=== PATIENT | female | born 1980 | race Caucasian/White ===

== ENCOUNTER 2016-07-14 16:52 | Emergency (ER) | payer BC, MEDICAID, OTHER ==
[2016-07-14 17:15] VITALS: BP 115/96
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
[2016-07-14 18:09] LABS: CHLORIDE,CL 103 mmol/L (101-111); SODIUM,NA 137 mmol/L (135-145)
== END 2016-07-14 18:33 | disposition home or self-care (01) ==
LOC: DL.ED 16:52
DX: Z77.21 Contact with and (suspected) exposure to potentially hazardous body fluids (principal); Z57.8 Occupational exposure to other risk factors; F17.210 Nicotine dependence, cigarettes, uncomplicated; Z88.2 Allergy status to sulfonamides; Z98.890 Other specified postprocedural states; Z90.49 Acquired absence of other specified parts of digestive tract; Z98.51 Tubal ligation status
CPT/HCPCS: 36415; 80053; 80074; 85025; 87389; 99283

== ENCOUNTER 2017-05-13 07:15 | Emergency (ER) | payer BC ==
[2017-05-13 07:54] VITALS: BP 126/98
--- NOTE | 2017-05-13 08:00 | EDM.PDOC ---
ED HPI GENERAL MEDICAL PROBLEM - General Chief Complaint: Respiratory Problem Stated Complaint: ? FLU Time Seen by Provider: 05/13/17 07:45 Source of Information: Reports: Patient History Limitations: Reports: No Limitations - History of Present Illness INITIAL COMMENTS - FREE TEXT/NARRATIVE: patient comes emergency Department today with complaints of fever or chills body aches dry hacking cough headache and a sore throat. She wonders if she does not have influenza. She did receive her influenza vaccine this year. Her symptoms of body aches and general malaise fatigue dry hacking cough and sore throat is been going on for the past 3 days. She has taken some Tylenol ibuprofen as well as TheraFlu with some improvement of the fever but she still feels quite ill. She denies any chest pain or production of cough. She denies any abdominal pain nausea or vomiting. She denies any hematuria dysuria or urinary frequency. She denies any earache. She denies any neck pain. Generalized Pain Score (Numeric/FACES): 6 - Related Data Allergies Allergy/AdvReac Type Severity Reaction Status Date / Time Sulfa (Sulfonamide Allergy Hives Verified 05/13/17 07:47 Antibiotics) Home Meds: Home Meds . 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 ED EXAM, GENERAL - Physical Exam Exam: See Below Free Text/Narrative:: dry hacking cough noted. Exam Limited By: No Limitations General Appearance: Alert, WD/WN, No Apparent Distress Eye Exam: Bilateral Eye: Normal Inspection Ears: Normal External Exam, Normal Canal, Normal TMs Ear Exam: Bilateral Ear: Auricle Normal, Canal Normal, TM normal Nose: Normal Inspection, Normal Mucosa Throat/Mouth: Normal Inspection, Normal Lips, Normal Teeth Head: Atraumatic, Normocephalic Neck: Normal Inspection, Non-Tender, Full Range of Motion, Lymphadenopathy (L), Lymphadenopathy (R) Respiratory/Chest: No Respiratory Distress, Lungs Clear, Normal Breath Sounds, No Accessory Muscle Use, Chest Non-Tender Cardiovascular: Normal Peripheral Pulses, Regular Rate, Rhythm Peripheral Pulses: 2+: Radial (L), Radial (R) GI/Abdominal: Normal Bowel Sounds, Soft, Non-Tender, No Organomegaly, No Distention, No Abnormal Bruit (Female) Exam: Deferred Rectal (Female) Exam: Deferred Back Exam: Normal Inspection, Full Range of Motion. No: CVA Tenderness (L), CVA Tenderness (R) Extremities: Normal Inspection, Normal Range of Motion, Non-Tender, Normal Capillary Refill Neurological: Alert, Oriented, CN II-XII Intact, Normal Reflexes, No Motor/ Sensory Deficits Psychiatric: Normal Affect, Normal Mood Skin Exam: Intact, Normal Color, No Rash, Cool, Diaphoretic Course - Vital Signs Last Recorded V/S: Last Vital Signs Temp 36.6 C 05/13/17 07:48 Pulse 96 05/13/17 07:48 Resp 16 05/13/17 07:48 BP 126/98 H 05/13/17 07:48 Pulse Ox 100 05/13/17 07:48 - Orders/Labs/Meds Orders: Active Orders 24 hr Category Date Time Status Chest 2V [CR] Urgent Exams 05/13/17 07:59 Taken CULTURE STREP A CONFIRMATION [RM] Stat Lab 05/13/17 07:56 Results STREP SCRN A RAPID W CULT CONF [RM] Stat Lab 05/13/17 07:56 Results Labs: Microbiology 05/13/17 07:56 Throat Group A Streptococcus Rapid Screen - Final NEGATIVE STREP A SCREEN - Radiology Interpretation Free Text/Narrative:: chest x-ray reviewed extemporaneously by myself. No effusion consolidation in filtrate hemopneumothorax with a normal cardiac silhouette reviewed extemporaneously by myself. Radiological review to follow. Negative chest xray per radiology report. - Re-Assessments/Exams Free Text/Narrative Re-Assessment/Exam: 05/13/17 07:59 we are currently out of the influenza testing kits. Strep screen and chest x- ray. 05/13/17 08:46 negative strep screen chest x-ray is negative as well. This is most likely influenza which we will treat her for with Tamiflu. Prescription for Tamiflu was applied to the patient. Departure - Departure Time of Disposition: 08:15 Disposition: Home, Self-Care 01 Clinical Impression: Influenza - Discharge Information Instructions: Influenza, Adult, [id number] Referrals: Luigi Strauss MD [Primary Care Provider] - Forms: ED Department Discharge Additional Instructions: Tylenol and or Ibuprofen as needed for pain fever body aches discomfort. Push oral fluids as much as possible over the next few days. Rest as much as possible. Out of work until fever resolves. Tamiflu 1 capsule twice daily for 5 days. RX given to the patient. Return to the ED if new or worsening symptoms. Follow up with primary care provider in the next 7 days if not improving sooner if worse. - My Orders Last 24 Hours: My Active Orders 05/13/17 07:56 CULTURE STREP A CONFIRMATION [RM] Stat STREP SCRN A RAPID W CULT CONF [RM] Stat 05/13/17 07:59 Chest 2V [CR] Urgent - Assessment/Plan Last 24 Hours: My Active Orders 05/13/17 07:56 CULTURE STREP A CONFIRMATION [RM] Stat STREP SCRN A RAPID W CULT CONF [RM] Stat 05/13/17 07:59 Chest 2V [CR] Urgent Assessment:: Influenza Plan: Tylenol and or Ibuprofen as needed for pain fever body aches discomfort. Push oral fluids as much as possible over the next few days. Rest as much as possible. Out of work until fever resolves. Tamiflu 1 capsule twice daily for 5 days. RX given to the patient. Return to the ED if new or worsening symptoms. Follow up with primary care provider in the next 7 days if not improving sooner if worse.
== END 2017-05-13 08:35 | disposition home or self-care (01) ==
LOC: DL.ED 07:15
DX: J11.1 Influenza due to unidentified influenza virus with other respiratory manifestations (principal); F17.210 Nicotine dependence, cigarettes, uncomplicated; Z88.2 Allergy status to sulfonamides
CPT/HCPCS: 71046; 87081; 87430; 99283

== ENCOUNTER 2021-03-06 14:55 | Emergency (ER) | payer BC ==
[2021-03-06 15:25] VITALS: BP 135/93; PULSE 88
--- NOTE | 2021-03-06 15:31 | EDM.PDOC ---
ED HPI GENERAL MEDICAL PROBLEM - General Chief Complaint: Chest Pain Stated Complaint: CHEST PAINS Time Seen by Provider: 03/06/21 15:45 Source of Information: Reports: Patient History Limitations: Reports: No Limitations - History of Present Illness INITIAL COMMENTS - FREE TEXT/NARRATIVE: 41 y/o F c/o Cp center chest heavy in nature radiating into left breast began an hour ago. Similar hour long episode yesterday around noon. Pt reports feeling sob with cp. Denies NVD, neck pain, back pain, abd pn, trauma, pelvic pain, vaginal discharge, ext pain, heart hx. Hx of anxiety, smoking. She reports her father had an TX at 54 and at 64 from heart disease. Pt reports she does not get CP when she gets anxiety and this pain does not feel like anxiety. She reports stress as work but states she knows how to deal with it. Tubal ligation 6 years ago. - Related Data Allergies Allergy/AdvReac Type Severity Reaction Status Date / Time Sulfa (Sulfonamide Allergy Hives Verified 03/06/21 15:19 Antibiotics) Home Meds: Home Meds . 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: - Infectious Disease History Infectious Disease History: Reports: Chicken Pox - Past Surgical History HEENT Surgical History: Reports: Tonsillectomy Cardiovascular Surgical History: Reports: Other (See Below) Other Cardiovascular Surgeries/Procedures: septum repair GI Surgical History: Reports: Appendectomy, Cholecystectomy Female Surgical History: Reports: Section, Tubal Ligation Social & Family History - Family History Family Medical History: No Pertinent Family History - Tobacco Use Tobacco Use Status *Q: Former Tobacco User Used Tobacco, but Quit: Yes Month/Year Tobacco Last Used: 12/08 - Caffeine Use Caffeine Use: Reports: Coffee - Recreational Drug Use Recreational Drug Use: No ED ROS GENERAL - Review of Systems Review Of Systems: Comprehensive ROS is negative, except as noted in HPI. ED EXAM, GENERAL - Physical Exam Exam: See Below Exam Limited By: No Limitations General Appearance: Alert, No Apparent Distress Eye Exam: Bilateral Eye: PERRL Ears: Normal External Exam, Normal Canal, Hearing Grossly Normal, Normal TMs Nose: Normal Inspection, Normal Mucosa, No Blood Throat/Mouth: Normal Inspection, Normal Lips, Normal Teeth, Normal Gums, Normal Oropharynx, Normal Voice, No Airway Compromise, Other (no palpable thyriod nodules. No bruits) Head: Atraumatic, Normocephalic Neck: Normal Inspection, Supple, Non-Tender, Full Range of Motion Respiratory/Chest: No Respiratory Distress, Lungs Clear, Normal Breath Sounds, No Accessory Muscle Use, Chest Non-Tender Cardiovascular: Normal Peripheral Pulses, Regular Rate, Rhythm, No Edema, No Gallop, No JVD, No Murmur, No Rub GI/Abdominal: Soft, Non-Tender Back Exam: Normal Inspection, Full Range of Motion, NT Extremities: Normal Inspection, Normal Range of Motion, Non-Tender, Normal Capillary Refill, No Pedal Edema Neurological: Alert, Oriented, CN II-XII Intact, Normal Cognition, Normal Gait, Normal Reflexes, No Motor/Sensory Deficits Psychiatric: Tearful Skin Exam: Warm, Dry, Intact #1 Interpretation EKG Date: 03/06/21 Time: 15:24 Rhythm: NSR [place]: Normal P-Wave: Present QRS: Normal ST-T: Normal QT: Normal Course - Vital Signs Last Recorded V/S: Last Vital Signs Temp 98.7 F 03/06/21 15:19 Pulse 88 03/06/21 15:19 Resp 16 03/06/21 15:19 BP 135/93 H 03/06/21 15:19 Pulse Ox 100 03/06/21 15:19 - Orders/Labs/Meds Orders: Active Orders 24 hr Category Date Time Status EKG Documentation Completion [RC] STAT Care 03/06/21 15:29 Active Chest 1V Frontal [CR] Urgent Exams 03/06/21 15:29 Taken Labs: Laboratory Tests 03/06/21 03/06/21 03/06/21 Range/Units 15:46 15:46 15:46 WBC 8.6 (5.0-10.0) 10^3/uL RBC 4.40 (4.2-5.4) 10^6/uL Hgb 13.3 (12.0-16.0) g/dL Hct 40.0 (37.0-47.0) % MCV 90.9 (80-100) fL MCH 30.2 (27.0-34.0) pg MCHC 33.3 (33.0-35.0) g/dL Plt Count 289 (150-450) 10^3/uL Neut % (Auto) 57.3 (42.2-75.2) % Lymph % (Auto) 31.1 (20.5-50.1) % [place] % (Auto) 8.1 H (2-8) % Eos % (Auto) 3.0 (1.0-3.0) % Baso % (Auto) 0.5 (0.0-1.0) % D-Dimer, Quantitative 164 (0-400) ng/mL Sodium 138 (136-145) mmol/L Potassium 3.6 (3.5-5.1) mmol/L Chloride 101 (98-107) mmol/L Carbon Dioxide 26 (21-32) mmol/L Anion Gap 14.6 H (7-13) mEq/L BUN 18 (7-18) mg/dL Creatinine 1.26 H (0.55-1.02) mg/dL Est Cr Clr Drug Dosing 58.29 mL/min Estimated GFR (MDRD) 47 BUN/Creatinine Ratio 14.3 (No establ ref range) Glucose 95 (70-99) mg/dL Calcium 8.9 (8.5-10.1) mg/dL Phosphorus (2.6-4.7) mg/dL Magnesium 1.7 L (1.8-2.4) mg/dL Total Bilirubin 0.4 (0.2-1.0) mg/dL AST 39 H (15-37) U/L ALT 86 H (14-59) U/L Alkaline Phosphatase 104 (46-116) U/L Troponin I High Sens < 4 (<=51) pg/mL C-Reactive Protein (0.0-0.9) mg/dL Total Protein 7.5 (6.4-8.2) g/dL Albumin 3.7 (3.4-5.0) g/dL Globulin 3.8 Albumin/Globulin Ratio 1.0 Amylase (25-115) U/L Lipase (73-393) U/L TSH, Ultra Sensitive (0.36-3.74) uIU/mL 03/06/ Range/Units 15:46 WBC (5.0-10.0) 10^3/uL RBC (4.2-5.4) 10^6/uL Hgb (12.0-16.0) g/dL Hct (37.0-47.0) % MCV (80-100) fL MCH (27.0-34.0) pg MCHC (33.0-35.0) g/dL Plt Count (150-450) 10^3/uL Neut % (Auto) (42.2-75.2) % Lymph % (Auto) (20.5-50.1) % [place] % (Auto) (2-8) % Eos % (Auto) (1.0-3.0) % Baso % (Auto) (0.0-1.0) % D-Dimer, Quantitative (0-400) ng/mL Sodium (136-145) mmol/L Potassium (3.5-5.1) mmol/L Chloride (98-107) mmol/L Carbon Dioxide (21-32) mmol/L Anion Gap (7-13) mEq/L BUN (7-18) mg/dL Creatinine (0.55-1.02) mg/dL Est Cr Clr Drug Dosing mL/min Estimated GFR (MDRD) BUN/Creatinine Ratio (No establ ref range) Glucose (70-99) mg/dL Calcium (8.5-10.1) mg/dL Phosphorus 3.4 (2.6-4.7) mg/dL Magnesium (1.8-2.4) mg/dL Total Bilirubin (0.2-1.0) mg/dL AST (15-37) U/L ALT (14-59) U/L Alkaline Phosphatase (46-116) U/L Troponin I High Sens (<=51) pg/mL C-Reactive Protein < 0.2 (0.0-0.9) mg/dL Total Protein (6.4-8.2) g/dL Albumin (3.4-5.0) g/dL Globulin Albumin/Globulin Ratio Amylase 49 (25-115) U/L Lipase 86 (73-393) U/L TSH, Ultra Sensitive 1.51 (0.36-3.74) uIU/mL - Re-Assessments/Exams Free Text/Narrative Re-Assessment/Exam: 03/06/21 16:36 I discussed the pts labs, exam, cxr and ekg with her and explained the negative findings. The pt feels relief in symptoms after resting her in the ER. She believes her symptoms may have been caused by a panic attack. Departure - Departure Time of Disposition: 16:38 Disposition: Home, Self-Care 01 Condition: Good Clinical Impression: Anxiety Instructions: Managing Anxiety, Adult Forms: ED Department Discharge Additional Instructions: If any new symptoms or concerns develop contact your primary care facility or return to the ER. Sepsis Event Note (ED) - Evaluation Sepsis Screening Result: No Definite Risk - Focused Exam Vital Signs: Vital Signs Temp Pulse Resp BP Pulse Ox 03/06/21 15:19 98.7 F 88 16 135/93 H 100 - My Orders Last 24 Hours: My Active Orders 03/06/21 15:29 EKG Documentation Completion [RC] STAT Chest 1V Frontal [CR] Urgent - Assessment/Plan Last 24 Hours: My Active Orders 03/06/21 15:29 EKG Documentation Completion [RC] STAT Chest 1V Frontal [CR] Urgent
[2021-03-06 16:15] LABS: ANION GAP 14.6 mEq/L (7-13); CHLORIDE,CL 101 mmol/L (98-107); SODIUM,NA 138 mmol/L (136-145)
--- NOTE | 2021-03-06 16:55 | CR ---
PROCEDURE INFORMATION: Exam: XR Chest Exam date and time: 03/06/2021 3:57 PM Age: 41 years old Clinical indication: Other: Chest pain; Additional info: Cp TECHNIQUE: Imaging protocol: XR of the chest. Views: 1 view. COMPARISON: CR Chest 2V 05/13/2017 8:04 AM FINDINGS: Lungs: Unremarkable. No consolidation. Pleural spaces: Unremarkable. No pleural effusion. No pneumothorax. Heart/Mediastinum: Unremarkable. No cardiomegaly. Bones/joints: Unremarkable. IMPRESSION: No acute findings.
== END 2021-03-06 16:47 | disposition home or self-care (01) ==
LOC: DL.ED 14:55
DX: F41.9 Anxiety disorder, unspecified (principal); Z88.2 Allergy status to sulfonamides; Z87.891 Personal history of nicotine dependence
CPT/HCPCS: 36415; 71045; 80053; 82150; 83690; 83735; 84100; 84443; 84484; 85025; 85379; 86140; 93005; 99284-25